=== PATIENT | female | born 1985 | race Caucasian/White ===

== ENCOUNTER 2017-08-15 08:25 | Outpatient (CLI) | payer OTHER ==
--- NOTE | 2017-08-15 16:05 | Ultrasound Report ---
EXAM: ABDOMEN ULTRASOUND EXAM DATE: 08/15/2017 10:03 AM. CLINICAL HISTORY: INCREASING RUQ AND DEEP UMBILICAL PAIN. COMPARISON: None. TECHNIQUE: Real-time scanning was performed with static images obtained. FINDINGS: Liver: Normal echotexture.No focal lesion. Liver measures 15.4 cm craniocaudally. Main portal vein fl ow: Hepatopetal. Gallbladder: Gallbladder wall thickness is normal.No gallstones.Sonographic Acuña sign is absent, pe r technologist's notes. Biliary System: Common bile duct measures 3.6 mm. No intrahepatic ductal dilatation. Pancreas: Visualized portion is unremarkable. Kidneys: Right: 10.8 cm longitudinally. Normal echotexture.No hydronephrosis.There is a mildly echogenic solid -appearing superior pole lesion measuring 11 x 11 x 6 mm, ultimately indeterminate although possibly angiomyolipoma.No calculus. Left: 10.8 cm longitudinally. Normal echotexture.No hydronephrosis.No contour-deforming mass.No calcu west. Spleen: 10.9 cm. No focal lesion. Aorta and Inferior Vena Cava: Unremarkable. There is a small hypoechoic area measuring 10 x 5 x 6 mm in the region of the reported umbilical sultana ia incision, nonspecific but may represent scar tissue. No convincing recurrent hernia in this locati on. IMPRESSION: 1. Mildly echogenic solid-appearing superior pole right renal mass measuring 11 mm, ultimately indete rminate although possibly angiomyolipoma. Renal mass protocol CT or MR recommended for confirmation. 2. Small hypoechoic region measuring 10 mm in the area of the reported umbilical hernia incision, non specific but may represent scar tissue. No convincing recurrent hernia in this location. 3. Otherwise unremarkable abdominal ultrasound. [facility] Referring Provider Line: [phone] SITE ID: [id number]
== END 2017-08-15 08:26 | disposition home or self-care (01) ==
LOC: DI 08:25
PROVIDERS: ATTEND Nurse Practitioner Family
DX: R10.11 Right upper quadrant pain (principal); R10.33 Periumbilical pain; N28.89 Other specified disorders of kidney and ureter
CPT/HCPCS: 76700

== ENCOUNTER 2018-03-30 11:04 | Outpatient (CLI) | payer OTHER ==
[2018-03-30 18:07] LABS: BASOPHILS % (AUTO) 0.6 %; EOSINOPHILS % (AUTO) 0.6 %; HGB - HEMOGLOBIN 14.5 g/dL (12.0-16.0); LYMPHOCYTES # (AUTO) 1.3 10^3/uL (1.5-3.5); LYMPHOCYTES % (AUTO) 19.5 %; MEAN CORPUSCULAR HEMOGLOBIN 28.7 pg (27.0-31.0); MEAN CORPUSCULAR HGB CONC 32.7 g/dL (32.0-36.0); MEAN CORPUSCULAR VOLUME 87.9 fL (81.0-99.0); MEAN PLATELET VOLUME 9.8 fL (7.9-10.8); MONOCYTES # (AUTO) 0.4 10^3/uL (0.0-1.0); MONOCYTES % (AUTO) 5.3 %; NEUTROPHILS # (AUTO) 4.9 10^3/uL (1.5-6.6); PLT - PLATELET COUNT 203 10^3/uL (130-450); RED BLOOD COUNT 5.06 10^6/uL (4.20-5.40); RED CELL DISTRIBUTION WIDTH 13.7 % (12.0-15.0); WHITE BLOOD COUNT 6.6 x10^3/uL (4.8-10.8)
[2018-03-30 18:46] LABS: FERRITIN 22.9 ng/mL (11.0-306.8)
== END 2018-03-30 11:05 | disposition home or self-care (01) ==
LOC: LAB.F 11:04
PROVIDERS: ATTEND Nurse Practitioner Family
DX: Z86.2 Personal history of diseases of the blood and blood-forming organs and certain disorders involving the immune mechanism (principal); D51.0 Vitamin B12 deficiency anemia due to intrinsic factor deficiency
CPT/HCPCS: 36415; 82607; 82728; 85025

== ENCOUNTER 2018-04-08 10:32 | Outpatient (CLI) | payer SELFPAY | END 2018-04-08 10:33 | disposition home or self-care (01) | LOC: LAB 10:32 | DX: Z01.89 Encounter for other specified special examinations (principal) ==

== ENCOUNTER 2019-07-20 18:20 | Outpatient (CLI) | payer MEDICAID, OTHER | END 2019-07-20 18:21 | disposition home or self-care (01) | LOC: COV 18:20 | PROVIDERS: ATTEND Family Medicine | DX: R05 Cough (principal) | CPT/HCPCS: 81599 ==

== ENCOUNTER 2020-01-10 06:49 | Outpatient (CLI) | payer OTHER ==
--- NOTE | 2020-01-10 08:33 | Ultrasound Report ---
PROCEDURE: Abdomen Complete INDICATIONS: RIGHT UPPER QUADRANT PAIN TECHNIQUE: Real-time scanning was performed of the abdominal and retroperitoneal organs, with image documentatio n. COMPARISON: None. FINDINGS: Liver: Liver is normal in size and homogeneous in echotexture. Gallbladder: Gallbladder sonographically normal. No gallstones. No gallbladder wall thickening with g allbladder wall measuring 1.2 mm. No pericholecystic fluid. No sonographic Acuña sign. Biliary ducts: Intrahepatic bile ducts are non-dilated. Extrahepatic bile duct caliber measures 2.9 mm. Normal is 6-7 mm or less in diameter, or 10 mm or less post-cholecystectomy. Pancreas: Visualized portions of the pancreas are sonographically normal. Spleen: Spleen is normal in size and homogeneous in echotexture. Kidneys: Kidneys are normal in size and echotexture. Right kidney measures 11.0 cm long; left kidne y measures 11.4 cm long. No hydronephrosis or nephrolithiasis. No solid masses. Aorta: Visualized aorta is normal in caliber at less than 3 cm. Iliacs: Proximal common iliac arteries are normal in caliber at less than 2.5 cm. IVC: Intrahepatic inferior vena cava is patent. Miscellaneous: No free abdominal fluid. IMPRESSION: 1. Normal abdominal sonogram. 2. No sonographic evidence of cholelithiasis or cholecystitis. If there is continued clinical concern for cholecystitis, a nuclear medicine HIDA scan should be considered for further evaluation. Reviewed by: Shivani Wan MD, PhD on 01/10/2020 8:31 AM PDT Approved by: Shivani Wan MD, PhD on 01/10/2020 8:31 AM PDT Station ID: [id number]
== END 2020-01-10 06:50 | disposition home or self-care (01) ==
LOC: DI 06:49
PROVIDERS: ATTEND Nurse Practitioner Family
DX: R10.11 Right upper quadrant pain (principal)
CPT/HCPCS: 76700

== ENCOUNTER 2021-06-14 15:57 | Outpatient (CLI) | payer BC ==
--- NOTE | 2021-06-14 18:35 | XRAY Report ---
PROCEDURE: Sacrum/Coccyx INDICATIONS: PAIN IN COCCYX TECHNIQUE: 3 views of the sacrum and coccyx acquired. COMPARISON: None FINDINGS: Bones: No fractures or dislocations. No suspicious bony lesions. Soft tissues: Visualized bowel gas pattern is normal. No suspicious soft tissue densities. IMPRESSION: No evidence of fracture or lytic lesion Reviewed by: Filemon Marcelino MD on 06/14/2021 5:33 PM [place] Approved by: Filemon Marcelino MD on 06/14/2021 5:33 PM [place] Station ID: [id number]
== END 2021-06-14 15:58 | disposition home or self-care (01) ==
LOC: DI.S 15:57
PROVIDERS: ATTEND Nurse Practitioner Family
DX: M53.3 Sacrococcygeal disorders, not elsewhere classified (principal)

== ENCOUNTER 2021-06-14 16:07 | Outpatient (CLI) | payer BC | END 2021-06-14 16:08 | disposition home or self-care (01) | LOC: DI.S 16:07 | PROVIDERS: ATTEND Nurse Practitioner Family | DX: Z53.9 Procedure and treatment not carried out, unspecified reason (principal) ==